=== PATIENT | female | born 1960 | race Caucasian/White ===

== ENCOUNTER 2019-11-18 10:46 | Outpatient (CLI) | payer OTHER, SELFPAY ==
--- NOTE | ~2019-11-18 | US_ITS ---
EXAMINATION: US pelvic complete w TV DATE: 11/18/2019 11:44 INDICATION: Postmenopausal bleeding for one year Comparison:09/22/2017 TECHNIQUE: Multiple transabdominal and endovaginal sonographic images of the pelvis performed. FINDINGS: The uterus measures 12.8 x 9.3 x 11 cm. There are multiple ill-defined myometrial masses so me with calcifications, largest measuring 3.7 x 3.3 x 3.2 cm, consistent with fibroids. The endometri al complex measures 15.5 mm. The ovaries are not visualized. There is no free fluid in the pelvis. There are no abnormal masses seen on either side. IMPRESSION: 1. Thickened endomtrial complex. The differential diagnosis includes endometrial hyperplasia, polyp a nd carcinoma. Biopsy is recommended. 2: Enlarged fibroid uterus. Reviewed, dictated and finalized at location A. IMPRESSION: 1. Thickened endomtrial complex. The differential diagnosis includes endometria l hyperplasia, polyp and carcinoma. Biopsy is recommended. 2: Enlarged fibroid uterus.
== END 2019-11-18 10:47 | disposition home or self-care (01) ==
PROVIDERS: PCP Internal Medicine; Visit Provider Obstetrics & Gynecology Gynecology
DX: N95.0 Postmenopausal bleeding (principal); D25.9 Leiomyoma of uterus, unspecified
CPT/HCPCS: 76830; 76856

== ENCOUNTER 2019-11-29 09:44 | Outpatient (CLI) | payer OTHER, SELFPAY ==
--- NOTE | ~2019-11-29 | MM_ITS ---
EXAMINATION: MM screening leonardo BI w rubi HISTORY: Screening mammogram TECHNIQUE: Craniocaudal and mediolateral oblique 3-D tomosynthesis images were obtained and synthetic 2-D images were generated. CAD analysis was submitted and interpreted. COMPARISON: Comparison to multiple prior studies sequentially, with oldest reviewed study dated 08/30. BREAST PARENCHYMAL COMPOSITION: The breasts are heterogeneously dense, which may obscure small masses . FINDINGS: There are developing asymmetries in the left breast best seen on CC view, obscured by dense fibroglandular tissue. The right breast is stable without evidence for malignancy. IMPRESSION: 1. Developing left breast asymmetries. 2. Additional mammographic views and possible breast ultrasound are recommended. BI-RADS Category 0: Incomplete: Needs additional imaging evaluation. Reviewed, dictated and finalized at location A. IMPRESSION: 1. Developing left breast asymmetries. 2. Additional mammographic views and possible breast ultrasound are recommended . BI-RADS Category 0: Incomplete: Needs additional imaging evaluation.
== END 2019-11-29 09:45 | disposition home or self-care (01) ==
LOC: ANHIMG 09:45
PROVIDERS: PCP Internal Medicine; Visit Provider Obstetrics & Gynecology Gynecology
DX: Z12.31 Encounter for screening mammogram for malignant neoplasm of breast (principal); R92.8 Other abnormal and inconclusive findings on diagnostic imaging of breast
CPT/HCPCS: 77063; 77067

== ENCOUNTER 2019-12-03 01:08 | Outpatient (CLI) | payer OTHER, SELFPAY ==
[2019-12-04 18:47] LABS: SARS-CoV-2 RNA PCR Negative
== END 2019-12-03 01:09 | disposition home or self-care (01) ==
LOC: ANHCOVIDDT 01:08
PROVIDERS: PCP Internal Medicine; Visit Provider Obstetrics & Gynecology Gynecology
DX: Z01.812 Encounter for preprocedural laboratory examination (principal); Z11.59 Encounter for screening for other viral diseases
CPT/HCPCS: 87635; 93005; C9803; U0003

== ENCOUNTER 2019-12-03 10:08 | Outpatient (CLI) | payer OTHER, SELFPAY ==
--- NOTE | 2019-12-03 10:11 | ECG_ITS ---
Measurements Intervals [place] Rate: 73 P: 55 NH: 160 QRS: 9 QRSD: 82 T: 14 QT: 357 QTc: 394 Interpretive Statements SINUS RHYTHM BORDERLINE ST-T WAVE ABNORMALITY- ANTEROLAT/INF LEADS BASELINE ARTIFACT- I, II, III, AVR, AVL,A VF BORDERLINE ECG Electronically Signed On 12-03-2019 10:38:52 CDT by Mark Velasquez D.O.
== END 2019-12-03 10:09 | disposition home or self-care (01) ==
LOC: ANHSURGERY 10:11
PROVIDERS: PCP Internal Medicine; Visit Provider Obstetrics & Gynecology Gynecology
DX: I10 Essential (primary) hypertension (principal); R94.31 Abnormal electrocardiogram [ECG] [EKG]
CPT/HCPCS: 87635; 93005; C9803; U0003

== ENCOUNTER 2019-12-06 01:58 | Day surgery (SDC) | payer OTHER, SELFPAY ==
[2019-11-29 13:47] VITALS: BMI 29.1
--- NOTE | 2019-12-06 07:59 | PM.HPGS ---
History of Present Illness History of Present Illness Consent: Risks, benefits, and alternatives have been discussed and questions answered. Patient agrees to proceed with procedure. Chief complaint: thick endometrium Narrative: Yue Horner is a 59 year old female with persistent spotting 3-5 days per month. U/s showed thickened endometrium at 15 mm. She did have a normal hysteroscopy with D&C 01/28. Recommended to repeat procedure with abnormal u/s and continued spotting. Risks of infection, bleeding, perforation, and possible pathology discussed. [facility] Past Medical History Medical History (Updated 12/06/19 @ 08:07 by Oralia Frank MD) Anxiety Hypertension Status post hysteroscopy x 2 2018 polyp vs hyperplasia without atypia pathology unclear-repeat endometrial biopsy normal 3 months later after increased progesterone 2019 negative Surgical History Surgical History (Updated 12/06/19 @ 08:04 by Oralia Frank MD) H/O breast biopsy H/O detached retina repair Hx of cataract surgery Family History Family History (Updated 07/22/19 @ 10:56 by Lyssa Fischer) Sibling Family history of multiple sclerosis CHF (congestive heart failure) Mother Family history of pancreatic cancer Grandparent CHF (congestive heart failure) Social History Social History Smoking status: Former smoker Smoking end date: 05/12/00 Alcohol intake: current Drinks per week: 14 Substance use: current Substance use type: marijuana Living arrangements: with family Gender identity (if verbalized by the patient): Female Spiritual care concerns: No Meds Home Medications and Allergies Home Medications Medication Instructions Recorded Confirmed Type cholecalciferol (vitamin D3) 1,250 50,000 unit PO WEEKLY 07/22/19 11/29/19 History mcg (50,000 unit) tablet estradiol 1 mg tablet 1 mg PO DAILY 07/22/19 11/29/19 History paroxetine HCl 20 mg tablet 20 mg PO DAILY 07/22/19 11/29/19 History progesterone micronized 100 mg 100 mg PO QAM 07/22/19 11/29/19 History capsule progesterone micronized 200 mg 200 mg PO ONCE 07/22/19 11/29/19 History capsule lisinopril 10 mg tablet 10 mg PO DAILY #90 tablet 08/19/19 11/29/19 Rx ibuprofen 600 mg tablet 600 mg PO BID PRN #30 tablet 09/10/19 11/29/19 Rx metoprolol succinate 50 mg 50 mg PO DAILY #90 tablet 09/20/19 11/29/19 Rx tablet,extended release 24 hr cyanocobalamin-salcaprozat sod 1 tablet PO DAILY 11/29/19 11/29/19 History [Eligen B12] ymqotqqn-egx-fvsi-FA-lutein 1 tablet PO DAILY 11/29/19 11/29/19 History [Centrum Silver Women] omega 3-paa-ous-fish oil [Tennga-3] 1 cap PO DAILY 11/29/19 11/29/19 History vitamin E 400 unit PO DAILY 11/29/19 11/29/19 History Allergies Allergy/AdvReac Type Severity Reaction Status Date / Time No Known Allergies Allergy Unverified 12/06/19 08:03 Exam Const: General: healthy appearing and alert Orientation/consciousness: patient oriented x3 Resp: Effort & Inspection: normal respiratory effort Auscultation: clear to auscultation bilaterally Cardio: Rate: regular rate Rhythm: regular rhythm GI: GI Palp: Yes Soft to palpation, No Tenderness to palpation present (GI) and No Palpable mass present : External Female Exam: normal external appearance Speculum Exam - Vagina: normal appearance of the vagina and vaginal bleeding Speculum Exam - Cervix: normal appearance of the cervix Bimanual exam- vagina & uterus: uterine size normal and consistency normal Bimanual Exam- Adnexa, other: normal adnexae and No adnexal tenderness Neuro: General: patient oriented x3 Assessment and Plan Assessment and plan (1) Post-menopausal bleeding: Code(s): N95.0 - Postmenopausal bleeding Status: Acute Assessment and Plan: with thickened endometrium plan hysteroscopy with D&C
[2019-12-06 08:08] VITALS: BP 149/84; PULSE 76; RESP 18; TEMP 36.7; O2SAT 98
[2019-12-06] MEDS: ACETAMINOPHEN 500 MG TABLET 1000 MG PO (08:18)
[2019-12-06] MEDS: LACTATED RINGERS 1,000 ML 30 ML IV CONT (08:18)
--- NOTE | 2019-12-06 09:27 | WPDANESEPPF ---
Anes - Initial Pre Proc Eval Procedure: Operation Date: 12/06/19 09:45 Proposed Procedures p Hysteroscopy Dilation and Curettage - Oralia Frank MD Date/Time: 12/06/19 09:27 Surgeon: Oralia Frank MD Pre Op Diagnosis: thick endometrium Patient Data Age: 59 Gender: F Height: 5 ft 5 in Weight: 84.5 kg Last Vital Signs Temp 98.0 F 12/06/19 08:08 Pulse 76 12/06/19 08:08 Resp 18 12/06/19 08:08 BP 149/84 H 12/06/19 08:08 Pulse Ox 98 12/06/19 08:08 Allergies Allergy/AdvReac Type Severity Reaction Status Date / Time No Known Allergies Allergy Unverified 12/06/19 08:03 Home Medications Medication Instructions Recorded Confirmed Type cholecalciferol (vitamin D3) 1,250 50,000 unit PO WEEKLY 07/22/19 12/06/19 History mcg (50,000 unit) tablet estradiol 1 mg tablet 1 mg PO DAILY 07/22/19 12/06/19 History paroxetine HCl 20 mg tablet 20 mg PO DAILY 07/22/19 12/06/19 History progesterone micronized 100 mg 100 mg PO QAM 07/22/19 12/06/19 History capsule progesterone micronized 200 mg 200 mg PO ONCE 07/22/19 12/06/19 History capsule lisinopril 10 mg tablet 10 mg PO DAILY #90 tablet 08/19/19 12/06/19 Rx ibuprofen 600 mg tablet 600 mg PO BID PRN #30 tablet 09/10/19 12/06/19 Rx metoprolol succinate 50 mg 50 mg PO DAILY #90 tablet 09/20/19 12/06/19 Rx tablet,extended release 24 hr cyanocobalamin-salcaprozat sod 1 tablet PO DAILY 11/29/19 12/06/19 History [Eligen B12] jpmwgskv-uet-blsc-FA-lutein 1 tablet PO DAILY 11/29/19 12/06/19 History [Centrum Silver Women] omega 4-egb-pgl-fish oil [Tolono-3] 1 cap PO DAILY 11/29/19 12/06/19 History vitamin E 400 unit PO DAILY 11/29/19 12/06/19 History Patient hx anesthesia problems: none Family hx anesthesia problems: none PMFSH Past Medical History Medical History (Updated 12/06/19 @ 08:07 by Oralia Frank MD) Anxiety Hypertension Status post hysteroscopy x 2 2018 polyp vs hyperplasia without atypia pathology unclear-repeat endometrial biopsy normal 3 months later after increased progesterone 2019 negative Surgical History Surgical History (Updated 12/06/19 @ 08:04 by Oralia Frank MD) H/O breast biopsy H/O detached retina repair Hx of cataract surgery Family History Family History (Updated 07/22/19 @ 10:56 by Lyssa Fischer) Sibling Family history of multiple sclerosis CHF (congestive heart failure) Mother Family history of pancreatic cancer Grandparent CHF (congestive heart failure) Social History Social History Smoking status: Former smoker Smoking end date: 05/12/00 Alcohol intake: current Drinks per week: 14 Substance use: current Substance use type: marijuana Living arrangements: with family Gender identity (if verbalized by the patient): Female Spiritual care concerns: No Anes - Eval Final PreProcedure Day of Procedure 12/06/19 09:27 Patient weight: overweight Heart: regular rate and rhythm Lungs: clear to auscultation Airway: Mallampati scale class III Neurological: alert and oriented Last oral intake: >/= 8 hours ASA classification: II Emergent: no Anesthetic plan: proceed Anesthesia type and monitoring: general GIVS and standard monitoring Informed Consent: The patient's anesthetic plan and its attendant risks and benefits were discussed with the patient/family/POA. Questions were solicited and answers provided to the satisfaction of the patient/family/POA.
[2019-12-06] MEDS: KETOROLAC 30 MG/ML VIAL (*BKC) IV PUSH (10:02)
--- NOTE | 2019-12-06 10:11 | SUR.OPER ---
EBL:5cc
--- NOTE | 2019-12-06 10:18 | PM.OP ---
Procedure Note - Brief Procedure Note - Brief Date of procedure: 12/06/19 Pre-op diagnosis: thick endometrium postmenopausal bleeding Post-op diagnosis: same Procedure performed: D&C hysteroscopy with myosure Anesthesia: MAC and local Surgeon: Oralia Frank MD Estimated blood loss (mL): 5 Drains: No Packing: No Pathology: yes (endometrial and endocervical shavings; endometrial curettings) Complications: No immediate complications Condition: stable Disposition: PACU Findings: uterus 10 cm; anterior cervix at the junction of endometrium appears thickened; remainder of cavity appears atrophic
[2019-12-06 10:22] VITALS: BP 151/92; PULSE 62; RESP 16; O2SAT 100
[2019-12-06 10:55] VITALS: BP 148/90; PULSE 55; RESP 16
--- NOTE | 2019-12-06 14:38 | OP_ITS ---
DATE OF PROCEDURE: 12/06/2019 PREOPERATIVE DIAGNOSES: 1. Postmenopausal bleeding. 2. Thickened endometrium. POSTOPERATIVE DIAGNOSES: 1. Postmenopausal bleeding. 2. Thickened endometrium. PROCEDURE PERFORMED: D and C, hysteroscopy with MyoSure resection. ANESTHESIA: MAC and local. FINDINGS: The uterus sounds to 10 cm. There was a thickened area on the anterior cervix near the endometrial junction. The remainder of the cavity appears atrophic. DESCRIPTION OF PROCEDURE: The patient was taken to the operating room, placed under anesthesia, prepped and draped in the usual sterile fashion. Bivalved speculum was placed in the vagina. Cervix was grasped on the anterior lip with a tenaculum and injected with 1% lidocaine. The uterus was sounded to 10 cm. The cervix was serially dilated with Hegar's. Diagnostic hysteroscope was placed with the above-stated findings. MyoSure device was opened and placed. The thickened area at the cervical junction was removed with the MyoSure under direct visualization. The instruments were removed. The medium sharp curette was used to curette the endometrium until a good uterine cry was noted in all areas. Minimal material was obtained during this process. All instruments were removed. The patient was taken to Recovery in stable condition. Hamida I MT: Jennifer
== END 2019-12-06 11:05 | disposition home or self-care (01) ==
PROVIDERS: PCP Internal Medicine; Visit Provider Obstetrics & Gynecology Gynecology
PROC: 0U5B8ZZ Destruction of Endometrium, Via Natural or Artificial Opening Endoscopic (ICD-10-PCS; CPT 58563; principal; 2019-12-06 09:45)
DX: N95.0 Postmenopausal bleeding (principal); D25.0 Submucous leiomyoma of uterus; I10 Essential (primary) hypertension; F41.9 Anxiety disorder, unspecified; Z87.891 Personal history of nicotine dependence; F12.90 Cannabis use, unspecified, uncomplicated
CPT/HCPCS: 58561; 88305; A9270; J1100; J1885; J2250; J2704; J3010; J7030; J7120

== ENCOUNTER 2019-12-20 11:08 | Outpatient (CLI) | payer OTHER, SELFPAY ==
--- NOTE | ~2019-12-20 | MMUS_ITS ---
EXAMINATION: MM diagnostic mammo unilat LT, US breast LT complete HISTORY: Follow-up left breast asymmetry TECHNIQUE: Additional 3-D tomosynthesis images of the left breast were performed and synthetic 2-D im ages were generated. CAD analysis was submitted and interpreted. High resolution left breast ultrasou nd was performed. COMPARISON: Comparison to multiple prior studies sequentially, with oldest reviewed study dated 08/30. BREAST PARENCHYMAL COMPOSITION: The breasts are heterogenously dense, which may obscure small masses. FINDINGS: MAMMOGRAPHIC FINDINGS: There are no suspicious masses, calcifications or architectural distortion in the left breast to sugg est malignancy. ULTRASOUND: Left breast ultrasound: There is an 8 mm cyst at 12:00 near the nipple. No suspicious masses to sugge st malignancy. IMPRESSION: 1. No mammographic or sonographic evidence for malignancy in the left breast. 2. Routine yearly screening mammogram and regular clinical breast examination are recommended. BI-RADS Category 2: Benign finding(s). Reviewed, dictated and finalized at location A. IMPRESSION: 1. No mammographic or sonographic evidence for malignancy in the left breast. 2. Routine yearly screening mammogram and regular clinical breast examination a re recommended. BI-RADS Category 2: Benign finding(s).
== END 2019-12-20 11:09 | disposition home or self-care (01) ==
LOC: ANHIMG 11:10
PROVIDERS: PCP Internal Medicine; Visit Provider Clinical Nurse Specialist
DX: R92.8 Other abnormal and inconclusive findings on diagnostic imaging of breast (principal)
CPT/HCPCS: 76641; 77065

== ENCOUNTER → 2020-06-17 06:47 | Outpatient (CLI) | payer OTHER, SELFPAY ==
[2020-06-18 00:19] LABS: SARS-CoV-2 RNA PCR Negative
== END ==
PROVIDERS: PCP Internal Medicine; Visit Provider Nurse Practitioner
DX: Z01.818 Encounter for other preprocedural examination (principal); Z20.822 Contact with and (suspected) exposure to COVID-19
CPT/HCPCS: C9803; U0003; U0005

== ENCOUNTER 2020-11-30 09:43 | Outpatient (CLI) | payer OTHER, SELFPAY ==
--- NOTE | ~2020-11-30 | MM_ITS ---
EXAMINATION: MM screening leonardo BI w rubi HISTORY: Screening TECHNIQUE: Craniocaudal and mediolateral oblique 3-D tomosynthesis images were obtained and synthetic 2-D images were generated. CAD analysis was submitted and interpreted. COMPARISON: Comparison to multiple prior studies sequentially, with oldest reviewed study dated 08/30. BREAST PARENCHYMAL COMPOSITION: The breasts are heterogeneously dense, which may obscure small masses . FINDINGS: The left breast is stable without evidence for malignancy. There is a developing cluster of pleomorphic calcifications in the upper outer quadrant of the right breast. IMPRESSION: 1. Developing clustered right breast calcifications. 2. Additional mammographic views and possible breast ultrasound are recommended. BI-RADS Category 0: Incomplete: Needs additional imaging evaluation. Reviewed, dictated and finalized at location A. IMPRESSION: 1. Developing clustered right breast calcifications. 2. Additional mammographic views and possible breast ultrasound are recommended . BI-RADS Category 0: Incomplete: Needs additional imaging evaluation.
== END 2020-11-30 09:44 | disposition home or self-care (01) ==
LOC: ANHIMG 09:45
PROVIDERS: PCP Internal Medicine; Visit Provider Obstetrics & Gynecology Gynecology
DX: Z12.31 Encounter for screening mammogram for malignant neoplasm of breast (principal); R92.8 Other abnormal and inconclusive findings on diagnostic imaging of breast
CPT/HCPCS: 77063; 77067

== ENCOUNTER 2020-12-26 13:46 | Outpatient (CLI) | payer OTHER, SELFPAY ==
--- NOTE | ~2020-12-26 | MM_ITS ---
EXAMINATION: MM diagnostic leonardo RT w rubi HISTORY: Indeterminate right breast calcifications on screening mammogram TECHNIQUE: Magnification views of the right breast were performed. CAD analysis was submitted and int erpreted. COMPARISON: 11/30/2020, 11/29/2019, 10/13/2018, 09/23/2017 FINDINGS: There are grouped coarse heterogeneous calcifications in the posterior third of the upper o uter quadrant breast at the 10:00 location 10 cm from the nipple. No associated mass is identified. IMPRESSION: 1. Suspicious right breast calcifications. 2. Stereotactic biopsy is recommended. BI-RADS category 4, suspicious findings. Reviewed, dictated and finalized at location A.
== END 2020-12-26 13:47 | disposition home or self-care (01) ==
LOC: ANHIMG 13:47
PROVIDERS: PCP Internal Medicine; Visit Provider Obstetrics & Gynecology Gynecology
DX: R92.8 Other abnormal and inconclusive findings on diagnostic imaging of breast (principal)
CPT/HCPCS: 77061; 77065; G0279

== ENCOUNTER 2021-01-09 12:28 | Outpatient (CLI) | payer OTHER, SELFPAY ==
--- NOTE | ~2021-01-09 | MM_ITS ---
MM stereotactic bx RT, MM diagnostic mammo unilat RT, MM stereotactic specimen RT EXAMINATION: JHONY juan reotactic bx RT, MM diagnostic mammo unilat RT, MM stereotactic specimen RT DATE: Dax Bates M.D. INDICATION: Abnormal calcifications in the right breast. Stereotactic core biopsy is requested evalu ate for malignancy.] TECHNIQUE AND FINDINGS: The risks and potential benefits of the procedure were discussed with the patient and written informe d consent was obtained. The patient was placed in the prone position clustered at the table with the right breast in mediolateral compression, and the area of interest was localized and targeted utiliz ing digital imaging with stereotaxis. After sterile preparation of the skin, 1% lidocaine was utilized for local anesthesia at the skin pun cture site and 1% lidocaine with epinephrine was utilized for deeper local anesthesia/is about the bi opsy site. A 9G Grid Mobile vacuum assisted biopsy needle was advanced to the level of the calcification o f interest from a lateral approach utilizing stereotactic guidance and a total of 6 tissue core biops ies were obtained. A specimen radiograph demonstrates that the calcifications of interest are included within the tissue cores. A tissue marker clip was then placed at the biopsy site. The needle was removed and hemosta sis was achieved. The patient tolerated the procedure well and there is no evidence of significant i mmediate complication. The patient was given verbal as well as written postprocedural instructions p rior to discharge from the department. Tissue cores were submitted to surgical pathology for histolo gic analysis. A 2-view right unilateral digital mammogram was obtained post procedure and this demonstrates that th e tissue marker clip is in expected position.] IMPRESSION: 1. Successful stereotactic biopsy of calcifications in the upper quadrant of the right breast, follo wed by tissue marker clip placement. Please refer to pathology report for histologic analysis. Reviewed, dictated and finalized at location A. IMPRESSION: 1. Successful stereotactic biopsy of calcifications in the upper quadrant of t he right breast, followed by tissue marker clip placement. Please refer to pat hology report for histologic analysis. IMPRESSION: 1. Successful stereotactic biopsy of calcifications in the upper quadrant of t he right breast, followed by tissue marker clip placement. Please refer to pat hology report for histologic analysis.
== END 2021-01-09 12:29 | disposition home or self-care (01) ==
PROVIDERS: PCP Internal Medicine; Visit Provider Surgery
DX: R92.8 Other abnormal and inconclusive findings on diagnostic imaging of breast (principal)
CPT/HCPCS: 19081; 77065; 88305; A4648

== ENCOUNTER 2021-04-12 09:45 | Outpatient (CLI) | payer OTHER, SELFPAY ==
--- NOTE | 2021-04-12 11:00 | NEURO_ITS ---
Impression: # Complains of numbness of feet. # Normal nerve conduction study. # Normal needle/EMG exam. # Clinical correlation recommended; Problem could be related to small fiber neuropathy or higher involvement. Nerve Conduction Studies Anti Sensory Summary Table Stim Site NR Peak (ms) P-T Amp (?V) Site1 Site2 Delta-P (ms) Dist (cm) Shankar (m/s) Left Sup Fibular Anti Sensory (Ant Lat Mall) 14 cm 3.7 34.1 14 cm Ant Lat Mall 3.7 16.0 43 Right Sup Fibular Anti Sensory (Ant Lat Mall) 14 cm 4.0 7.5 14 cm Ant Lat Mall 4.0 16.0 40 Left Sural Anti Sensory (Lat Mall) Calf 3.9 8.7 Calf Lat Mall 3.9 16.0 41 Right Sural Anti Sensory (Lat Mall) Calf 4.5 7.2 Calf Lat Mall 4.5 16.0 36 Motor Summary Table Stim Site NR Onset (ms) O-P Amp (mV) Site1 Site2 Delta-0 (ms) Dist (cm) Shankar (m/s) Left Peroneal Motor (Vastus Med) Ankle 5.1 1.1 Popit Ankle 7.7 39.0 51 Popit 12.8 0.7 Right Peroneal Motor (Vastus Med) Ankle 5.4 2.5 Popit Ankle 7.3 35.0 48 Popit 12.7 2.2 Left Tibial Motor (Abd Jones Brev) Ankle 5.2 1.6 Knee Ankle 8.3 41.0 49 Knee 13.5 1.5 Right Tibial Motor (Abd Jones Brev) Ankle 5.5 7.1 Knee Ankle 9.9 40.0 40 Knee 15.4 6.7 F Wave Studies NR F-Lat (ms) L-R F-Lat (ms) Left Peroneal (Mrkrs) (EDB) 52.19 0.35 Right Peroneal (Mrkrs) (EDB) 52.54 0.35 Left Tibial (Mrkrs) (Abd Hallucis) 53.35 0.09 Right Tibial (Mrkrs) (Abd Hallucis) 53.26 0.09 EMG Side Muscle Nerve Root Ins Act Fibs Amp Dur Recrt Comment Right AntTibialis Dp Br Fibular L4-5 Nml Nml Nml Nml Nml Right Gastroc Tibial S1-2 Nml Nml Nml Nml Nml Right Fibularis Long Sup Br Fibular L5-S1 Nml Nml Nml Nml Nml Right Flex Dig Long Tibial L5-S2 Nml Nml Nml Nml Nml Right Ext Dig Brev Dp Br Fibular L5, S1 Nml Nml Nml Nml Nml Left AntTibialis Dp Br Fibular L4-5 Nml Nml Nml Nml Nml Left Gastroc Tibial S1-2 Nml Nml Nml Nml Nml Left Fibularis Long Sup Br Fibular L5-S1 Nml Nml Nml Nml Nml Left Flex Dig Long Tibial L5-S2 Nml Nml Nml Nml Nml Left Ext Dig Brev Dp Br Fibular L5, S1 Nml Nml Nml Nml Nml MTDD
== END 2021-04-12 09:46 | disposition home or self-care (01) ==
LOC: ANHNEURO 09:47
PROVIDERS: PCP Internal Medicine; Visit Provider Internal Medicine
DX: R20.2 Paresthesia of skin (principal)
CPT/HCPCS: 95886; 95910

== ENCOUNTER 2021-07-20 11:17 | Outpatient (CLI) | payer BC, SELFPAY ==
--- NOTE | ~2021-07-20 | MM_ITS ---
EXAMINATION: MM diagnostic leonardo RT w rubi HISTORY: Recent benign biopsy of the right breast. TECHNIQUE: Additional 3-D tomosynthesis images of the right breast were performed and synthetic 2-D i mages were generated. CAD analysis was submitted and interpreted. COMPARISON: Comparison to multiple prior studies sequentially, with oldest reviewed study dated 11/30. BREAST PARENCHYMAL COMPOSITION: The breasts are heterogenously dense, which may obscure small masses. FINDINGS: Stable cluster of calcifications upper outer quadrant of the right breast with adjacent tis blaine marker. No new masses, calcifications or architectural distortion in the right breast to suggest malignancy. IMPRESSION: 1. No evidence for malignancy in the right breast. 2. Routine yearly screening mammogram and regular clinical breast examination are recommended. BI-RADS Category 2: Benign finding(s). Reviewed, dictated and finalized at location A. 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 No evidence for malignancy in the right breast. 2. Routine yearly screening mammogram and regular clinical breast examination a re recommended. BI-RADS Category 2: Benign finding(s).
== END 2021-07-20 11:18 | disposition home or self-care (01) ==
LOC: ANHIMG 11:22
PROVIDERS: PCP Internal Medicine; Visit Provider Surgery
DX: R92.8 Other abnormal and inconclusive findings on diagnostic imaging of breast (principal); Z98.890 Other specified postprocedural states
CPT/HCPCS: 77061; 77065; G0279

== ENCOUNTER 2022-01-01 10:19 | Outpatient (CLI) | payer BC, SELFPAY ==
--- NOTE | ~2022-01-01 | MM_ITS ---
EXAMINATION: MM screening [facility] BI w rubi HISTORY: Screening TECHNIQUE: Craniocaudal and mediolateral oblique 3-D tomosynthesis images were obtained and synthetic 2-D images were generated. CAD analysis was submitted and interpreted. COMPARISON: Comparison to multiple prior studies sequentially, with oldest reviewed study dated 11/28. BREAST PARENCHYMAL COMPOSITION: The breasts are extremely dense, which lowers the sensitivity of mamm ography FINDINGS: Stable right breast calcifications clustered in the upper outer quadrant, previously biopsy -proven benign. There is no evidence of suspicious mass, calcification, or architectural distortion t o suggest malignancy in either breast. There has been no suspicious interval change. IMPRESSION: 1. No mammographic evidence of malignancy. 2. Recommend routine screening mammography in one year. BI-RADS Category 2: Benign finding(s). Reviewed, dictated and finalized at location A.
== END 2022-01-01 10:20 | disposition home or self-care (01) ==
PROVIDERS: PCP Internal Medicine; Visit Provider Obstetrics & Gynecology Gynecology
DX: Z12.31 Encounter for screening mammogram for malignant neoplasm of breast (principal)
CPT/HCPCS: 77063; 77067

== ENCOUNTER 2022-02-11 11:52 | Outpatient (CLI) | payer BC, SELFPAY ==
--- NOTE | ~2022-02-11 | MMUS_ITS ---
EXAMINATION: MM diagnostic leonardo RT w rubi, US breast RT limited HISTORY: Palpable lump of the upper inner quadrant of the right breast. TECHNIQUE: Craniocaudal, mediolateral, and mediolateral oblique 3-D tomosynthesis images of the right breast were performed and synthetic 2-D images were generated. CAD analysis was submitted and interp reted. High resolution limited right breast ultrasound was performed. COMPARISON: 01/01/2022, 07/20/2021, 01/09/2021, 11/30/2020, 11/29/2019 BREAST PARENCHYMAL COMPOSITION: The breasts are heterogeneously dense, which may obscure small masses . FINDINGS: MAMMOGRAPHIC FINDINGS: There is a stable 1.9 cm mass with calcification and biopsy change in the right breast at the 3:00 lo cation in the middle third of the breast near the area of palpable concern. There has been no suspici ous interval change. ULTRASOUND: There is a 2.0 x 0.7 cm oval, circumscribed, parallel, hypoechoic mass with internal calcification, a biopsy marker, no posterior features, and no internal vascularity corresponding to the palpable abno rmality of concern. IMPRESSION: 1. No mammographic or sonographic evidence of malignancy. 2. Recommend routine screening mammography in one year. BI-RADS Category 2: Benign finding(s). Reviewed, dictated and finalized at location A. IMPRESSION: 1. No mammographic or sonographic evidence of malignancy. 2. Recommend routine screening mammography in one year. BI-RADS Category 2: Benign finding(s).
== END 2022-02-11 11:53 | disposition home or self-care (01) ==
PROVIDERS: PCP Internal Medicine; Visit Provider Obstetrics & Gynecology Gynecology
DX: N63.12 Unspecified lump in the right breast, upper inner quadrant (principal)
CPT/HCPCS: 76642; 77061; 77065; G0279

== ENCOUNTER 2023-10-07 14:24 | Outpatient (CLI) | payer BC, SELFPAY ==
--- NOTE | ~2023-10-07 | DEXA_ITS ---
Bone Density Report Name: MARIA ISABEL WORKMAN Age: 63 Sex: Female Ethnicity: White Date of : 1960 Indication: postmenopausal; screening for osteoporosis; Referring Provider: JAMES VEGA Study: Bone densitometry was performed. Exam Date: October 07, 2023 Accession number: [id number] Bone Density: Region BMD T-score Z-score Classification AP Spine(L1-L4) 1.285 2.2 3.9 Normal Femoral Neck (Left) 0.879 0.3 1.8 Normal Total Hip (Left) 1.101 1.3 2.5 Normal Femoral Neck (Right) 0.927 0.7 2.2 Normal Total Hip (Right) 1.140 1.6 2.8 Normal Total Hip Mean 1.121 1.5 2.7 Normal World Health Organization criteria for BMD impression classify patients as: Normal (T-score at or above -1.0), Osteopenia (T-score between -1.0 and -2.5), or Osteoporosis (T-score at or below -2.5). 10-year Fracture Risk: FRAX not reported because: All T-scores for Spine Total, Hip Total, Femoral Neck at or above -1.0 Clinical Information Provided by Patient: Has used the following medications: Vitamin D, Calcium Patient maximum height was 65.5 Menopause Age: 62 Drinks caffeinated beverages Onset of menses at age 12 Number of children 1 Impression: The patient has normal bone mass. Discussion: BONE DENSITY IS ABOVE THE MINIMUM DESIRABLE LEVEL AT ALL SKELETAL SITES TESTED. This patient?s bone mineral density is above the minimum desirable level (T-score -1.0 or better) at all sites measured. The patient should follow a healthful lifestyle (good nutrition with adequate calcium and vitamin D, and appropriate weight-bearing exercise). Follow-Up: Consider repeating this study in 5 years or sooner if there is some new clinical indication. Reported by: MADONNA on 10/07/2023 3:03:00 PM. Reviewed, dictated and finalized at location A.
--- NOTE | ~2023-10-07 | MM_ITS ---
EXAMINATION: MM screening leonardo BI w rubi HISTORY: Screening TECHNIQUE: Craniocaudal and mediolateral oblique 3-D tomosynthesis images were obtained and synthetic 2-D images were generated. CAD analysis was submitted and interpreted. COMPARISON: Comparison to multiple prior studies sequentially, with oldest reviewed study dated 11/30. BREAST PARENCHYMAL COMPOSITION: Dense: The breasts are heterogeneously dense, which may obscure small masses FINDINGS: There is no evidence of suspicious mass, calcification, or architectural distortion to sugg est malignancy in either breast. There has been no suspicious interval change. IMPRESSION: 1. No mammographic evidence of malignancy. 2. Recommend routine screening mammography in one year. BI-RADS Category 1: Negative Reviewed, dictated and finalized at location B.
== END 2023-10-07 14:25 | disposition home or self-care (01) ==
PROVIDERS: PCP Internal Medicine; Visit Provider Obstetrics & Gynecology Gynecology
DX: Z12.31 Encounter for screening mammogram for malignant neoplasm of breast (principal); Z78.0 Asymptomatic menopausal state; Z13.820 Encounter for screening for osteoporosis
CPT/HCPCS: 77063; 77067; 77080

== ENCOUNTER 2024-04-26 10:37 | Outpatient (CLI) | payer MEDICARE, SELFPAY ==
[2024-04-26 11:40] LABS: Alanine Aminotransferase 18 U/L (6-35); Aspartate Amino Transferase 22 U/L (14-36)
== END 2024-04-26 10:38 | disposition home or self-care (01) ==
PROVIDERS: PCP Internal Medicine; Visit Provider Podiatrist Foot & Ankle Surgery
DX: B35.1 Tinea unguium (principal)
CPT/HCPCS: 36415; 84450; 84460

== ENCOUNTER 2024-07-13 08:53 | Outpatient (CLI) | payer MEDICARE, SELFPAY | END 2024-07-13 08:54 | disposition home or self-care (01) | LOC: ANHIMG 08:56 | PROVIDERS: PCP Internal Medicine; Visit Provider Anesthesiology Pain Medicine | DX: G62.9 Polyneuropathy, unspecified (principal); G89.29 Other chronic pain; M79.671 Pain in right foot; M79.672 Pain in left foot; M47.896 Other spondylosis, lumbar region | CPT/HCPCS: 72148 ==

== ENCOUNTER 2024-07-28 11:21 | Outpatient (CLI) | payer MEDICARE, SELFPAY ==
[2024-07-28 13:19] LABS: Basophils Percent Auto 0.6 % (0.2-1.2); Eosinophils Percent Auto 0.6 % (0-4.4); Hematocrit 41.6 % (37.0-47.0); Hemoglobin 13.4 g/dL (12.0-15.0); Immature Granulocyte Absolute 0.02 K/mm3 (0.00-0.031); Immature Granulocyte Percent A 0.3 % (0-0.5); Lymphocytes Absolute Auto 2.09 K/mm3 (0.9-3.2); Lymphocytes Percent Auto 33.5 % (18.3-44.2); Mean Corpuscular HGB Conc 32.2 g/dl (32-36); Mean Corpuscular Volume 93.1 fl (80-100); Mean Platelet Volume 9.8 fl (7.4-10.4); Monocytes Absolute Auto 0.5 K/mm3 (0.1-0.6); Monocytes Percent Auto 7.4 % (2.6-8.5); Neutrophils Absolute Auto 3.6 K/mm3 (1.3-6.7); Neutrophils Percent Auto 57.6 % (45.5-73.1); Platelet Count Result 359 k/mm3 (150-375); Red Blood Count 4.47 M/mm3 (4.2-5.4); Red Cell Distribution Width 12.9 % (11.5-14.5); White Blood Count 6.2 K/mm3 (4.5-10.0)
--- OUTSIDE RECORDS SUMMARY | 2024-07-28 13:19 | XMS_ITS | Clinical Summary ---
Author Organization [facility] Address [address] [place] [address] Care Team Providers Care V Belt Skiver Name Role Phone Geo Villela DO Primary Care Provider [phone] Source Comments [facility],non-owned Affiliates and Associated Physician Practices is amultiple site organization consisting of ambulatory clinics and hospital sitesin [place], [place], [place] and [place]. This disclosure is being madepursuant to the Care Everywhere program and may not contain all information available regarding this patient. Last updated 18.[facility] Allergies No known active allergies Medications * Be aware that medications may not be up to date on this document. Alwaysverify current medications with the patient. Medication Sig Dispensed Refills Start Date End Date Status vitamin D, ergocalciferol, (DRISDOL) 80356 UNITS capsule Take 1 capsule by mouth every 7 days 03/29/2018 Active estradiol (ESTRACE) 1 MG tablet Take 1 tablet by mouth once daily 04/06/2018 Active ibuprofen (MOTRIN) 800 MG tablet Take 1 tablet by mouth as needed 04/06/2018 Active lisinopril (PRINIVIL;ZESTRIL) 5 MG tablet Take 1 tablet by mouth once daily 04/06/2018 Active metoprolol succinate XL 24hr (TOPROL XL) 50 MG tablet Take 1 tablet by mouth once daily 04/06/2018 Active PARoxetine (PAXIL) 20 MG tablet Take 1 tablet by mouth once daily 04/06/2018 Active progesterone micronized (PROMETRIUM) 200 MG capsule Take 1 capsule by mouth once daily 04/07/2018 Active progesterone micronized (PROMETRIUM) 100 MG capsule Take 1 capsule by mouth once daily 04/06/2018 Active vitamin E (VITAMIN E COMPLEX) 400 UNIT capsule Take 400 Units by mouth once daily Active MEGARED OMEGA-3 KRILL OIL 500 MG CAPS Take 1 capsule by mouth once daily 350 MG DAILY Active Multiple Vitamins-Minerals (CENTRUM SILVER) TABS Take 1 tablet by mouth daily with food Active calcium-vitamin D (CALTRATE PLUS D) 600-200 MG-UNIT tablet Take 1 tablet by mouth once daily Active Active Problems Problem Noted Date Diagnosed Date 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 Other rosacea 06/19/2018 Actinic keratosis 06/19/2018 Melanocytic nevi of trunk 06/19/2018 Seborrheic keratosis 06/19/2018 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 9 History of laser photocoagulation of retina 11/2018 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 Family History Medical History Relation Name Comments Cancer - Pancreatic Mother Cancer - Breast Sister Asthma Neg Hx CVA Neg Hx Cancer - Other Neg Hx Cancer - Skin, Melanoma Neg Hx Cancer - Skin, Non Melanoma Neg Hx Diabetes - Type 2 Neg Hx Eczema Neg Hx Glaucoma Neg Hx Hemophilia Neg Hx Hypertension Neg Hx Macular Degeneration Neg Hx Psoriasis Neg Hx Relation Name Status Comments Mother Sister Social History Tobacco Use Types Packs/Day Years Used Date Smoking Tobacco: Former Cigarettes Q uit: 2000 Smokeless Tobacco: Never Alcohol Use Standard Drinks/Week Comments Yes 0 (1 standard drink = 0.6 oz pur e alcohol) 3 glasses of wine a day Sex and Gender Information Value Date Recorded Sex Assigned at Not on file Gender Identity Not on file Sexual Orientation Not on file Plan of Treatment Health Maintenance Due Date Last Done Comments BONE DENSITY TESTING 1960 COLOGUARD (AGES 45-75) - COL ON CA SCREENING 1960 COLON MONITORING 1959 COLONOSCOPY - COLON CA SCREENING 1959 CT COLONOGRAPHY - COLON CA SCREENING 1960 Colorectal Cancer Screening 1960 FIT - COLON CA SCREENING 1959 FLEX SIG - COLON CA SCREENING 1959 LIPID TESTING 1960 MAMMOGRAM 1960 PAP SMEAR 1959 HIV SCREENING 1974 HEPATITIS C SCREENING 01/11/1977 DTAP/TDAP/TD VACCINES (1 - Tdap) 1978 PNEUMOCOCCAL VACCINE 50+ (1 of 1 - PCV) 2009 ZOSTER VACCINE (1 of 2) 2009 COVID-19 VACCINE (1 - 2023-2 5 season) 2024 INFLUENZA VACCINE (#1) 2024 DEPRESSION SCREENING 05/12/2024 Respiratory Syncytial Virus (RSV) Vaccine Pt: or over 60 yrs (1 - 1-dose 75+ series) 2034 HEPATITIS B VACCINE Aged Out No longe r eligible based on patient's age to complete this topic HIB VACCINE Aged Out No longer eligi ble based on patient's age to complete this topic HPV VACCINE Aged Out No longer eligi ble based on patient's age to complete this topic MENINGOCOCCAL (Group B) VACC INE SHARED DECISION-MAKING Aged Out No longer eligibl e based on patient's age to complete this topic MENINGOCOCCAL GROUPS A/C/Y/W VACCINE Aged Out No longer eligible b ased on patient's age to complete this topic Care Teams V Belt Skiver Relationship Specialty Start Date End Date Geo Villela DO PCP - General 04/17/18
--- OUTSIDE RECORDS SUMMARY | 2024-07-28 13:19 | XMS_ITS | Clinical Summary ---
Author Organization [facility] Address [address] [place] [address] Care Team Providers Care Cart Pusher Name Role Phone Geo Villela DO Primary Care Provider [phone] Allergies No known active allergies Medications Vitamin D, Ergocalciferol, 50 MCG (1999 UT) Cap Take 5,000 Units by mouth daily. 06/08/19 22 Active estradiol 1 MG tablet Take 1 mg by mouth daily. 07/09/19 21 Active ibuprofen 600 MG tablet Take 600 mg by mouth 2 (two) times daily as needed. 05/07/20 21 Active lisinopril 20 MG tablet Take 20 mg by mouth daily. 04/25/20 Active metoprolol succinate ER 50 MG 24 hr tablet Take 50 mg by mouth daily. 06/08/19 Active progesterone 200 MG capsule TAKE 2 CAPSULES BY MOUTH EVERY NIGHT AT BEDTIME 07/09/19 Active metroNIDAZOLE 0.75 % gel Apply topically 2 (two) times daily. apply to face 05/07/20 Active PARoxetine 20 MG tablet Take 20 mg by mouth daily. 05/09/20 Active simvastatin 10 MG tablet Take 10 mg by mouth daily. 04/25/20 Active vitamin E 400 UNIT capsule Take 400 Units by mouth daily. Active Calcium Carbonate+Vitamin D 600-200 MG-UNIT Tab Take 1 tablet by mouth daily. Active HYDROcodone-acetam inophen 5-325 MG tablet hydrocodone 5 mg-acetaminophen 325 mg tablet Active Krill Oil (OMEGA-3) 500 MG Cap Take 1 capsule by mouth daily. Active Multiple Vitamins-Minerals (CENTRUM SILVER) Tab Take 1 tablet by mouth daily. Active ondansetron 8 MG disintegrating tablet ondansetron 8 mg disintegrating tablet Active Active Problems Problem Noted Date Diagnosed Date Anxiety 06/25/2021 Hypertension 06/25/2021 Immunizations Name Administration Dates Next Due Influenza (Generic) 01/11/2021 Influenza Adult (Generic) 12/30/2019 Shingrix 08/09/2019,05/31/2019 Family History Medical History Relation Comments Cancer Mother Pancreatic CHF Neg Hx Multiple Sclerosis Neg Hx Relation Status Comments Mother Social History Tobacco Use Types Packs/Day Years Used Date Smoking Tobacco: Former Cigarettes Smokeless Tobacco: Never Tobacco Cessation:Counseling Given: No Alcohol Use Standard Drinks/Week Comments Yes 5 (1 standard drink = 0.6 oz pur e alcohol) Comments No Sex and Gender Information Value Date Recorded Sex Assigned at Not on file 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 Gender Identity Not on file Sexual Orientation Not on file Last Filed Vital Signs Vital Sign Reading Time Taken Comments Blood Pressure 144/82 10/09/2021 9:56 AM CDT Pulse 59 10/09/2021 9:56 AM CDT Temperature 36.9 C (98.5 F) 10/09/2021 9:56 AM CDT Respiratory Rate 16 10/09/2021 9:56 AM CDT Oxygen Saturation 96% 10/09/2021 9:56 AM CDT Inhaled Oxygen Concentration - - Weight 85.6 kg (188 lb 12.8 oz) 10/09/2021 9:56 AM CDT Height 165.1 cm (5' 5 ) 10/09/2021 9:56 AM CDT Body Mass Index 31.42 10/09/2021 9:56 AM CDT Plan of Treatment Health Maintenance Due Date Last Done Comments Colorectal Cancer Screening Colonoscopy (10 Years) 1960 Hepatitis C 1977 DTaP, Tdap and Td Vaccines ( 1 - Tdap) 1978 Mammogram Screening 1999 COVID-19 Vaccine (2023-2 5 season) 2024 03/19/2021, 09/05/2020, 08/08/2020 Dexa Scan (General) 01/17/2024 Pneumococcal Vaccine: 65+ Years (1 of 1 - PCV) 01/17/2024 Influenza Adult (#1) 2024 01/11/2021, 12/30/2019 PHQ-2 (Physician [place]) 05/12/2024 RSV Immunization or 60+ Years (1 - 1-dose 75+ series) 2034 Zoster Vaccines Completed 08/09/2019, 05/31/2019 Meningococcal B Vaccine Aged Out No l onger eligible based on patient's age to complete this topic Meningococcal Vaccine Aged Out No shade brandon eligible based on patient's age to complete this topic Pneumococcal Vaccine: Pediatrics (0 to 5 Years) and At-Risk Patients (6 to 64 Years) Aged Out No longer eligible b ased on patient's age to complete this topic RSV Immunizations Under 20 Months Aged Out No longer eligible b ased on patient's age to complete this topic Insurance MEDICARE [facility] Care Teams Cart Pusher Relationship Specialty Start Date End Date Geo Villela DO [address] [place] [address] PCP - General INTERNAL MEDICINE 12/20/21
--- OUTSIDE RECORDS SUMMARY | 2024-07-28 13:19 | XMS_ITS | Clinical Summary ---
Author Organization [facility] Address [address] [place] [address] Care Team Providers Care Driver Name Role Phone Geo Villela Primary Care Provider Allergies No known active allergies Medications ergocalciferol (VITAMIN D2) 50,000 unit capsule TK ONE C PO EACH WEEK 3 09/05/2017 Active estradiol (ESTRACE) 1 mg tablet TK 1 T PO D 1 09/05/2017 Active ibuprofen (MOTRIN) 800 mg tablet TK 1 T PO TID PRN 0 07/10/2017 Active lisinopril (PRINIVIL) 5 mg tablet TK 1 T PO D 2 09/05/2017 Active metoprolol succinate (TOPROL XL) 50 mg Extended Release 24 hour tablet TK 1 T PO QD 1 09/08/2017 Active PARoxetine HCl (PAXIL) 20 mg tablet Take 20 mg by mouth daily. Active Active Problems Problem Noted Date Diagnosed Date Fibrocystic breast changes, bilateral 10/02/2017 Social History Tobacco Use Types Packs/Day Years Used Date Smoking Tobacco: Never Smokeless Tobacco: Never Alcohol Use Standard Drinks/Week Comments Yes 6 (1 standard drink = 0.6 oz pur e alcohol) week Comments No Sex and Gender Information Value Date Recorded Sex Assigned at Not on file Legal Sex Female 1:55 PM CDT Gender Identity Not on file Sexual Orientation Not on file Last Filed Vital Signs Vital Sign Reading Time Taken Comments Blood Pressure 126/70 10/02/2017 9:52 AM CDT Pulse 88 10/02/2017 9:52 AM CDT Temperature 36.8 C (98.2 F) 10/02/2017 9:52 AM CDT Respiratory Rate - - Oxygen Saturation - - Inhaled Oxygen Concentration - - Weight 82.2 kg (181 lb 3.2 oz) 10/02/2017 9:52 A M CDT Height 165.1 cm (5' 5 ) 10/02/2017 9:52 AM CDT Body Mass Index 30.15 10/02/2017 9:52 AM CDT Plan of Treatment Health Maintenance Due Date Last Done Comments DTAP/TDAP/TD VACCINES (1 - Tdap) 1978 COLORECTAL SCREENING 01/17/2004 Colorectal Cancer Screening 01/17/2004 FIT-DNA Q 3 years 01/17/2004 FIT/FOBT Q 1 year 01/17/2004 Flex Sig/CT Colonography Q 5 years 01/17/2004 PNEUMOCOCCAL VACCINE 50+ YEARS (1 of 1 - PCV) 01/17/20 09 ZOSTER VACCINE (1 of 2) 2009 BREAST CANCER SCREENING 09/11/2017 09/11/2016 INFLUENZA VACCINE (#1) 2023 OSTEOPOROSIS SCREENING 01/17/2024 RSV VACCINE (60+ or ) (1 - 1-dose 75+ series) 2034 Procedures Procedure Name Priority Date/Time Associated Diagnosis Comments MAMMOGRAM REPORT Routine 09/11/2016 from Last 3 Months or Most Recently Relevant to Health Maintenance Results * MAMMOGRAM REPORT (09/11/2016) us Abstract Provider MAMMO ORDERABLES Final Result [facility] from Last 3 Months or Most Recently Relevant to Health Maintenance Insurance [place] Care Teams Driver Relationship Specialty Start Date End Date Geo Villela DO [address] [address] PCP - General Internal Medicine 10/02/17
[2024-07-28 13:24] LABS: Alanine Aminotransferase 25 U/L (6-35); Albumin Level 4.5 g/dL (3.5-5.1); Alkaline Phosphatase 49 U/L (38-126); Anion Gap 9 mmol/L (4-12); Aspartate Amino Transferase 36 U/L (14-36); Blood Urea Nitrogen 10 mg/dL (7-17); Calcium 8.8 mg/dL (8.4-10.2); Carbon Dioxide 27 mmol/L (22-30); Chloride 100 mmol/L (98-107); Cholesterol 265 mg/dL (0-200); Estimated Glomerular Filt Rate > 60; Glucose 124 mg/dL (65-110); HDL Direct 79 mg/dL; Potassium 4.7 mmol/L (3.4-5.0); Sodium 136 mmol/L (137-145); Triglycerides 255 mg/dL (<150)
[2024-07-28 13:34] LABS: LDL Cholesterol Direct 150 mg/dL
[2024-07-28 13:41] LABS: Hemoglobin A1C 5.3 % (<5.7)
[2024-07-28 14:31] LABS: Vitamin D 25 Hydroxy 44.5 ng/mL
== END 2024-07-28 11:22 | disposition home or self-care (01) ==
PROVIDERS: PCP Internal Medicine; Visit Provider Nurse Practitioner
DX: R73.03 Prediabetes (principal); I10 Essential (primary) hypertension; E78.5 Hyperlipidemia, unspecified; E55.9 Vitamin D deficiency, unspecified
CPT/HCPCS: 36415; 80053; 80061; 82306; 83036; 84443; 85025

== ENCOUNTER 2024-09-23 12:47 | Outpatient (CLI) | payer MEDICARE, SELFPAY ==
--- NOTE | ~2024-09-23 | XR_ITS ---
EXAMINATION: XR chest 2V 09/23/2024 12:21 INDICATION: Preprocedural examination. PROCEDURE: 2 view chest COMPARISON: No prior studies for comparison. FINDINGS: The lungs are clear. The cardiomediastinal silhouette is within normal limits. There are no pleural effusions. There is no pneumothorax suspected. IMPRESSION: 1: NO ACUTE CARDIOPULMONARY DISEASE. Reviewed, dictated and finalized at location A.
--- OUTSIDE RECORDS SUMMARY | 2024-09-23 11:37 | XMS_ITS | Clinical Summary ---
Author Organization [facility] Address [address] [place] [address] Care Team Providers Care Sleeping Bag Filler Name Role Phone Geo Villela Primary Care [...] Maintenance Insurance [place] Care Teams Sleeping Bag Filler Relationship Specialty Start Date End Date Geo Villela DO [address] [address] PCP - General Internal Medicine 10/02/17
--- OUTSIDE RECORDS SUMMARY | 2024-09-23 11:37 | XMS_ITS | Clinical Summary ---
Author Organization [facility] Address [address] [place] [address] Care Team Providers Care Tool Procurement Coordinator Name Role Phone Geo Villela DO Primary Care Provider [phone] Allergies No known active allergies Medications Vitamin D, Ergocalciferol, 50 MCG (1999 UT) Cap Take 5,000 Units by mouth daily. 06/08/19 22 Active estradiol 1 MG tablet Take 1 mg by mouth daily. 07/09/19 21 Active ibuprofen 600 MG tablet Take 600 mg by mouth 2 (two) times daily as needed. 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 Gender Identity Not on file Sexual Orientation [...] 1 - Tdap) 1978 Mammogram Screening 1999 Pneumococcal Vaccine: 50+ Years (1 of 1 - PCV) 2009 COVID-19 Vaccine (4 - 2023-2 5 season) 2024 03/19/2021, 09/05/2020, 08/08/2020 Dexa Scan (General) 01/17/2024 PHQ-2 (Physician [place]) 05/12/2024 RSV Immunization or 60+ Years (1 [...] age to complete this topic Insurance MEDICARE [facility] Care Teams Tool Procurement Coordinator Relationship Specialty Start Date End Date Geo Villela DO [address] [place] [address] PCP - General INTERNAL MEDICINE 04/30/21
--- OUTSIDE RECORDS SUMMARY | 2024-09-23 11:37 | XMS_ITS | Clinical Summary ---
Author Organization [facility] Address [address] [place] [address] Care Team Providers Care Pricing Clerk Name Role Phone Geo Villela DO Primary Care Provider [phone] Source Comments [facility],non-owned Affiliates and Associated Physician Practices is amultiple site organization consisting of ambulatory clinics and hospital sitesin [place] and [place]. This disclosure is being madepursuant to the Care Everywhere program and may not contain all information available regarding this patient. Last updated 18.[facility] Allergies No known active allergies Medications * Be aware that medications may not be up to date on this document. Alwaysverify current medications with the patient. vitamin D, ergocalciferol, (DRISDOL) 24465 UNITS capsule Take 1 capsule by mouth every 7 days 03/29/2018 Active estradiol (ESTRACE) 1 MG tablet Take 1 tablet by mouth once daily 04/06/2018 Active ibuprofen (MOTRIN) 800 MG tablet Take 1 tablet by mouth as needed 04/06/2018 Active lisinopril (PRINIVIL;ZESTR [place]) 5 MG tablet Take 1 tablet by [...] once daily 350 MG DAILY Active Multiple Vitamins-Minera ls (CENTRUM SILVER) TABS Take 1 tablet by [...] alcohol) 3 glasses of wine a day Comments Unknown Sex and Gender Information Value Date Recorded Sex Assigned at Not on file Legal Sex Female 7:15 AM CDT Gender Identity Not on file Sexual [...] SCREENING 1960 LIPID TESTING 1960 MAMMOGRAM 1959 HIV SCREENING 1974 HEPATITIS C SCREENING 01/11/1977 DTAP/TDAP/TD VACCINES (1 - Tdap) 1978 PNEUMOCOCCAL VACCINE 50+ (1 of 1 - PCV) 2009 ZOSTER VACCINE (1 of 2) 2009 COVID-19 VACCINE (1 - 2023-2 5 season) 2024 DEPRESSION SCREENING 05/12/2024 INFLUENZA VACCINE (Season Ended) 2025 Respiratory Syncytial Virus (RSV) Vaccine Pt: or [...] patient's age to complete this topic [place] [address] [place] [address] Care Teams Pricing Clerk Relationship Specialty Start Date End Date Geo Villela DO PCP - General 04/17/18
--- NOTE | 2024-09-23 11:53 | ECG_ITS ---
Test Date: 2024-09-23 12:03:38 Measurements Intervals [place] Rate: 60 P: 10 [place]: 144 QRS: 19 QRSD: 90 T: 17 QT: 391 QTc: 393 Interpretive Statements SINUS RHYTHM NONSPECIFIC ST AND T-WAVE ABNORMALITY ABNORMAL ECG No previous ECG available for comparison Electronically Signed On 09-24-2024 09:40:54 CDT by Micky Hobson M.D.
--- OUTSIDE RECORDS SUMMARY | 2024-09-23 12:26 | XMS_ITS | Clinical Summary ---
Author Organization [facility] Address [address] [place] [address] Care Team Providers Care Process Coach Name Role Phone Geo Vilella Primary Care Provider Allergies No known active [...] Maintenance Insurance [place] Care Teams Process Coach Relationship Specialty Start Date End Date Geo Villela DO [address] [address] PCP - General Internal Medicine 10/02/17
--- OUTSIDE RECORDS SUMMARY | 2024-09-23 12:26 | XMS_ITS | Clinical Summary ---
Author Organization [facility] [employer] Address [address] [place] [address] Care Team Providers Care Manufacturing Intern Name Role Phone Geo Villela DO Primary Care Provider [phone] Source Comments [facility] [employer],non-owned Affiliates and Associated Physician Practices is amultiple site organization consisting of ambulatory clinics and hospital sitesin [place], [place], [place] and [place]. This disclosure is being madepursuant to the Care Everywhere program and may not contain all information available regarding this patient. Last updated 18.[facility] [employer] Allergies No known active allergies Medications * Be aware that medications may not be up to date on this document. Alwaysverify current medications with the patient. vitamin D, ergocalciferol, (DRISDOL) 01613 UNITS capsule Take 1 capsule by mouth [...] patient's age to complete this topic [place] [address] Care Teams Manufacturing Intern Relationship Specialty Start Date End Date Geo Villela DO PCP - General 04/17/18
--- OUTSIDE RECORDS SUMMARY | 2024-09-23 12:26 | XMS_ITS | Clinical Summary ---
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
--- OUTSIDE RECORDS SUMMARY | 2024-09-23 12:49 | XMS_ITS | Clinical Summary ---
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
--- OUTSIDE RECORDS SUMMARY | 2024-09-23 12:49 | XMS_ITS | Clinical Summary ---
Author Organization [facility] Address [address] [place] [address] Care Team Providers Care Freelance Makeup Artist Name Role Phone Geo Villela Primary Care [...] Maintenance Insurance [place] Care Teams Freelance Makeup Artist Relationship Specialty Start Date End Date Geo Villela DO [address] [address] PCP - General Internal Medicine 10/02/17
--- OUTSIDE RECORDS SUMMARY | 2024-09-23 12:49 | XMS_ITS | Clinical Summary ---
Author Organization [facility] [employer] Address [address] [place] [address] Care Team Providers Care Travel Ot Name Role Phone Geo Villela DO Primary Care Provider [phone] Source Comments [facility] [employer],non-owned Affiliates and Associated Physician Practices is amultiple site organization consisting of ambulatory clinics and hospital sitesin [place], [place], [place] and [place]. This disclosure is being madepursuant to the Care Everywhere program and may not contain all information available regarding this patient. Last updated 18.[facility] [employer] Allergies No known active allergies Medications * Be aware that medications may not be up to date on this document. Alwaysverify current medications with the patient. vitamin D, ergocalciferol, (DRISDOL) 56940 UNITS capsule Take 1 capsule by mouth [...] patient's age to complete this topic [place] [address] Care Teams Travel Ot Relationship Specialty Start Date End Date Geo Villela DO PCP - General 04/17/18
[2024-09-23 13:37] LABS: Hematocrit 37.6 % (37.0-47.0); Hemoglobin 12.2 g/dL (12.0-15.0); Mean Corpuscular HGB Conc 32.4 g/dl (32-36); Mean Corpuscular Hemoglobin 31.4 pg (26-34); Mean Corpuscular Volume 96.7 fl (80-100); Mean Platelet Volume 9.4 fl (7.4-10.4); Platelet Count Result 305 k/mm3 (150-375); Red Blood Count 3.89 M/mm3 (4.2-5.4); White Blood Count 6.6 K/mm3 (4.5-10.0)
[2024-09-23 13:50] LABS: Partial Thromboplastin Time 23.5 Seconds (22.3-36.8)
[2024-09-23 13:51] LABS: Alanine Aminotransferase 26 U/L (6-35); Albumin Level 4.4 g/dL (3.5-5.1); Alkaline Phosphatase 45 U/L (38-126); Anion Gap 8 mmol/L (4-12); Aspartate Amino Transferase 41 U/L (14-36); Bilirubin,Total 0.9 mg/dL (0.2-1.3); Blood Urea Nitrogen 12 mg/dL (7-17); Calcium 8.6 mg/dL (8.4-10.2); Carbon Dioxide 26 mmol/L (22-30); Chloride 100 mmol/L (98-107); Estimated Glomerular Filt Rate > 60; Glucose 103 mg/dL (65-110); Potassium 4.3 mmol/L (3.4-5.0); Sodium 134 mmol/L (137-145)
[2024-09-23 14:51] LABS: MRSA (PCR) NOT DETECTED (NOT DETECTE)
[2024-09-23 16:27] LABS: Hemoglobin A1C 4.8 % (<5.7)
== END 2024-09-23 12:48 | disposition home or self-care (01) ==
PROVIDERS: PCP Internal Medicine; Visit Provider Anesthesiology Pain Medicine
DX: Z01.818 Encounter for other preprocedural examination (principal); R94.31 Abnormal electrocardiogram [ECG] [EKG]; R73.03 Prediabetes; N95.0 Postmenopausal bleeding; Z79.01 Long term (current) use of anticoagulants
CPT/HCPCS: 36415; 71046; 80053; 83036; 85027; 85610; 85730; 87641; 93005

== ENCOUNTER 2024-10-05 05:53 | Day surgery (SDC) | payer MEDICARE, SELFPAY ==
[2024-09-16 07:48] VITALS: BMI 29.9
--- NOTE | 2024-09-30 11:11 | PC.NURSE ---
EKG reviewed per anesthesia. OK to proceed with procedure at [facility] per Dr. Tadeo.
--- NOTE | ~2024-10-05 | XR_ITS ---
Indication: Temporary placement of spinal stimulator leads TECHNIQUE: Fluoroscopy used during Temporary placement of spinal stimulator leads performed by [ Larry Hsu MD] on 10/05/2024. 692 seconds of fluoroscopy with 6 fluoroscopic images captured. FINDINGS: Correlate with procedure note. IMPRESSION: Fluoroscopy used during Temporary placement of spinal stimulator leads, superior aspect o f the leads overlie the thoracic spine. Reviewed, dictated and finalized at location A. IMPRESSION: Fluoroscopy used during Temporary placement of spinal stimulator le ads, superior aspect of the leads overlie the thoracic spine.
--- OUTSIDE RECORDS SUMMARY | 2024-10-05 06:11 | XMS_ITS | Clinical Summary ---
Author Organization [facility] Address [address] [place] [address] Care Team Providers Care Guest Relations Officer Name Role Phone Geo Villela DO Primary Care Provider [phone] Source Comments [facility],non-owned Affiliates and Associated Physician Practices is amultiple site organization consisting of ambulatory clinics and hospital sitesin [place], [place], [place] and [place]. This disclosure is being madepursuant to the Care Everywhere program and may not contain all information available regarding this patient. Last updated 18.[facility] Allergies No known active allergies Medications * Be aware that medications may not be up to date on this document. Alwaysverify current medications with the patient. vitamin D, ergocalciferol, (DRISDOL) 80980 UNITS capsule Take 1 capsule by mouth [...] patient's age to complete this topic [place] [address] [address] Care Teams Guest Relations Officer Relationship Specialty Start Date End Date Geo Villela DO PCP - General 04/17/18
--- OUTSIDE RECORDS SUMMARY | 2024-10-05 06:11 | XMS_ITS | Clinical Summary ---
Author Organization [facility] Address [address] [place] [address] Care Team Providers Care Denture Technician Name Role Phone Geo Villela Primary Care [...] Maintenance Insurance [employer] [place] Care Teams Denture Technician Relationship Specialty Start Date End Date Geo Villela DO [address] [address] PCP - General Internal Medicine 10/02/17
--- OUTSIDE RECORDS SUMMARY | 2024-10-05 06:11 | XMS_ITS | Continuity of Care Document ---
Author Organization [facility] Address [address] [place] [address] Phone Care Team Providers Care Cosmetologist Apprentice Name Role Phone NVision, Provider Unavailable Unavailable Advance Directives Directive Yes / No Effective Date File Name No Information Encounters Encounter Description Practice Location Reason(s) For Visit Diagnoses Date Provider Providers Copied on Encounter [facility], [address], [place], [place], [id number], [place] tel:[phone] Other [facility] No Information 2 [facility] Provider. . Family History Family Member Type Diagnosis Age At Onset No Information Payers Payer name Insurance type Covered libertarian ID Authoriza tion(s) No Information Social History Type Description Quantity Date Captured Comments Sex Female Smoking Status No Information Chief Complaint And Reason For Visit No Information Reason For Referral Reason For Referral No Information History Of Present Illness Encounter Date Complaint History Of Prese nt Illness No Information Functional Status Date Functional Assessmen t No Information Instructions Date Instruction Additional Infor mation No Information Assessments Type Assessment Date No Information Patient Care Teams Name Effective Dates (start - stop) Status Members No Information
[2024-10-05 06:22] VITALS: BP 124/68; RESP 18; TEMP 36.9; O2SAT 97
[2024-10-05] MEDS: LACTATED RINGERS 1,000 ML 30 ML IV CONT (06:45)
--- NOTE | 2024-10-05 07:12 | P.PNAN_ITS ---
Anes - Initial Pre Proc Eval Procedure: Operation Date: 10/05/24 07:30 Proposed Procedures p Temporary Placement 2x8 Contact Percutaneous Epidural Stimulation Leads under Fluoroscopic Guidance for Spinal Cord Stimulator Trial - Larry Hsu MD Date/Time: 10/05/24 07:12 Surgeon: Larry Hsu MD Pre Op Diagnosis: Other Chronic Pain Patient Data Age: 64 Gender: F Height: 1.65 m Weight: 85.1 kg Last Vital Signs Temp 36.9 C 10/05/24 06:22 Resp 18 10/05/24 06:22 BP 124/68 10/05/24 06:22 Pulse Ox 97 10/05/24 06:22 O2 Del Method Room Air 10/05/24 06:22 Allergies Allergy/AdvReac Type Severity Reaction Status Date / Time No Known Allergies Allergy Verified 10/05/24 06:29 Home Medications ?Medication ?Instructions ?Recorded ?Confirmed ?Type cholecalciferol (vitamin D3) 1,250 50,000 unit PO WEEKLY 07/22/19 10/05/24 History mcg (50,000 unit) tablet paroxetine HCl 20 mg tablet 20 mg PO DAILY 07/22/19 10/05/24 History dbqbiwhv-hmjs-ctox 8 mg-folic 400 1 tablet PO DAILY 11/29/19 10/05/24 History mcg-K 50 mcg-lutein 300 mcg tablet (Centrum Silver Women) omega 3 350 mg-dha 235 mg-epa 90 1 cap PO DAILY 11/29/19 10/05/24 History mg-fish oil 597 mg capsule,delay rel ([place]-3) vitamin E 268 mg (400 unit) capsule 400 unit PO DAILY 11/29/19 10/05/24 History ascorbate calcium (vitamin C) 500 500 mg PO DAILY 08/09/20 10/05/24 History mg tablet calcium carbonate 600 mg PO DAILY 08/09/20 10/05/24 History cholecalciferol (vitamin D3) 125 125 mcg PO DAILY 07/25/21 10/05/24 History mcg (5,000 unit) capsule cyanocobalamin 1,000 1 tablet PO DAILY 07/25/21 10/05/24 History mcg-salcaprozate sodium 100 mg tablet ibuprofen 600 mg tablet See Rx Instructions .Route 06/02/24 10/05/24 Rx .COMPLEX #30 tabs pregabalin 75 mg capsule 75 mg PO TID 07/28/24 10/05/24 History simvastatin 20 mg tablet 20 mg PO DAILY #90 tabs 07/29/24 10/05/24 Rx metoprolol succinate 50 mg 50 mg PO DAILY #90 tabs 09/15/24 10/05/24 Rx tablet,extended release 24 hr lisinopril 20 mg tablet 20 mg PO DAILY #90 tabs 09/22/24 10/05/24 Rx Patient hx anesthesia problems: none Family hx anesthesia problems: none Results Review: All pre-operative results and documents have been reviewed as part of the pre- operative evaluation. 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 Status post hysteroscopy x 2 2018 polyp vs hyperplasia without atypia pathology unclear-repeat endometrial biopsy normal 3 months later after increased progesterone 2019 negative Anxiety Hypertension Surgical History Surgical History S/P tubal ligation H/O dilation and curettage H/O breast biopsy Hx of cataract surgery H/O detached retina repair Family History Family History Sibling Family history of multiple sclerosis CHF (congestive heart failure) Breast cancer Mother Family history of pancreatic cancer Pancreatic cancer Grandparent CHF (congestive heart failure) Social History Social History Smoking status: Never smoker Smoking end date: 05/12/00 Alcohol intake: current Drinks per week: 14 Substance use: current Substance use type: marijuana Do You Feel Safe in your Home?: Yes Lack of Transportation: No Lack of Food: Never True Current Housing: I Have Housing Concerned About Future Housing: No Difficulty Paying Gas/Electric Bills: No Difficulty Paying for Meds: No Currently Unemployed: No Education: High School Diploma/GED Difficulty w/ Childcare or Family Care: No Living arrangements: alone Occupation/Education: retired Gender identity (if verbalized by the patient): Female Spiritual care concerns: No Anes - Eval Final PreProcedure Day of Procedure 10/05/24 07:12 Patient weight: obese Heart: regular rate and rhythm Lungs: clear to auscultation Airway: Mallampati scale class III Neurological: alert and oriented Last oral intake: >/= 8 hours ASA classification: III Emergent: no Anesthetic plan: proceed Anesthesia type and monitoring: general GIVS and standard monitoring Results Review: All pre-operative results and documents have been reviewed as part of the pre- operative evaluation. Informed Consent: The patient's anesthetic plan and its attendant risks and benefits were discussed with the patient/family/POA. Questions were solicited and answers provided to the satisfaction of the patient/family/POA.
--- NOTE | 2024-10-05 07:15 | PM.HPGS ---
History of Present Illness History of Present Illness Consent: Risks, benefits, and alternatives have been discussed and questions answered. Patient agrees to proceed with procedure. Chief complaint: Peripheral polyneuropathy, chronic pain Narrative: Yue Horner is a 64 year old female with chronic, recalcitrant and disabling bilateral lower extremity and foot pain secondary to peripheral polyneuropathy with failure to respond to aggressive conservative measures including PT, oral and topical analgesics, opioid and nonopioid analgesics, rest, time and activity/behavioral modification over the past 6-12 months who presents for 2 lead, percutaneous thoracolumbar spinal cord stimulation trial under fluoroscopic guidance. Review of Systems Review of Systems: Patient denies any new infectious, allergic, cardiopulmonary, neurologic or constitutional symptoms or changes in activity tolerance or exercise capacity including new or progressive SOB/NEGRO, peripheral edema, productive cough, dysuria, nausea/vomiting, diarrhea, weight change, fevers/chills/night sweats, new or progressive neurologic deficit, cognitive or mood changes since last seen, except as documented in the HPI. All systems reviewed & are unremarkable except as noted in HPI and below PMFSH Past Medical History Medical History (Updated 10/05/24 @ 07:16 by Aravind Baez, ) Hyperlipidemia Peripheral polyneuropathy Chronic pain long-term (current) use of anticoagulants Status post hysteroscopy x 2 2018 polyp vs hyperplasia without atypia pathology unclear-repeat endometrial biopsy normal 3 months later after increased progesterone 2019 negative Anxiety Hypertension Surgical History Surgical History S/P tubal ligation H/O dilation and curettage H/O breast biopsy Hx of cataract surgery H/O detached retina repair Family History Family History Sibling Family history of multiple sclerosis CHF (congestive heart failure) Breast cancer Mother Family history of pancreatic cancer Pancreatic cancer Grandparent CHF (congestive heart failure) Social History Social History Smoking status: Never smoker Smoking end date: 05/12/00 Alcohol intake: current Drinks per week: 14 Substance use: current Substance use type: marijuana Do You Feel Safe in your Home?: Yes Lack of Transportation: No Lack of Food: Never True Current Housing: I Have Housing Concerned About Future Housing: No Difficulty Paying Gas/Electric Bills: No Difficulty Paying for Meds: No Currently Unemployed: No Education: High School Diploma/GED Difficulty w/ Childcare or Family Care: No Living arrangements: alone Occupation/Education: retired Gender identity (if verbalized by the patient): Female Spiritual care concerns: No Meds Home Medications and Allergies Home Medications ?Medication ?Instructions ?Recorded ?Confirmed ?Type cholecalciferol (vitamin D3) 1,250 50,000 unit PO WEEKLY 07/22/19 10/05/24 History mcg (50,000 unit) tablet paroxetine HCl 20 mg tablet 20 mg PO DAILY 07/22/19 10/05/24 History axuvemim-xcoh-tzsd 8 mg-folic 400 1 tablet PO DAILY 11/29/19 10/05/24 History mcg-K 50 mcg-lutein 300 mcg tablet (Centrum Silver Women) omega 3 350 mg-dha 235 mg-epa 90 1 cap PO DAILY 11/29/19 10/05/24 History mg-fish oil 597 mg capsule,delay rel ([place]-3) vitamin E 268 mg (400 unit) capsule 400 unit PO DAILY 11/29/19 10/05/24 History ascorbate calcium (vitamin C) 500 500 mg PO DAILY 08/09/20 10/05/24 History mg tablet calcium carbonate 600 mg PO DAILY 08/09/20 10/05/24 History cholecalciferol (vitamin D3) 125 125 mcg PO DAILY 07/25/21 10/05/24 History mcg (5,000 unit) capsule cyanocobalamin 1,000 1 tablet PO DAILY 07/25/21 10/05/24 History mcg-salcaprozate sodium 100 mg tablet ibuprofen 600 mg tablet See Rx Instructions .Route 06/02/24 10/05/24 Rx .COMPLEX #30 tabs pregabalin 75 mg capsule 75 mg PO TID 07/28/24 10/05/24 History simvastatin 20 mg tablet 20 mg PO DAILY #90 tabs 07/29/24 10/05/24 Rx metoprolol succinate 50 mg 50 mg PO DAILY #90 tabs 09/15/24 10/05/24 Rx tablet,extended release 24 hr lisinopril 20 mg tablet 20 mg PO DAILY #90 tabs 09/22/24 10/05/24 Rx Allergies Allergy/AdvReac Type Severity Reaction Status Date / Time No Known Allergies Allergy Verified 10/05/24 06:29 Vital Signs Vital Signs - 24 hr 10/05/24 06:22 Temperature 98.5 F Respiratory Rate 18 Blood Pressure 124/68 Pulse Oximetry 97 Oxygen Delivery Room Air Exam Narrative: The patient's physical exam is essentially unchanged from prior examination on 08/09/2024. Specifically, patient demonstrates normal lung capacity, tidal volume and respiratory rate without wheezes, crackles, rales or rubs. Heart rate and rhythm are regular without murmurs, gallops or rubs. No JVD. Pulses 2+ globally without increasing peripheral edema. AAOx3 with no evidence of confusion, intoxication or altered mental state, NC/AT without acute distress or altered consciousness. Speech, cognition, mood, insight and judgment at baseline and within normal limits. Assessment and Plan Assessment and plan (1) Small fiber neuropathy: Code(s): G62.9 - Polyneuropathy, unspecified Status: Acute (2) Peripheral polyneuropathy: Code(s): G62.9 - Polyneuropathy, unspecified Status: Acute (3) Foot pain, bilateral: Code(s): M79.671 - Pain in right foot; M79.672 - Pain in left foot Status: Acute (4) Chronic pain: Qualifiers: Chronic pain type: other chronic pain Qualified Code(s): G89.29 - Other chronic pain Code(s): G89.29 - Other chronic pain Status: Acute Plan Proceed as planned with 2 lead, percutaneous thoracolumbar spinal cord stimulation trial under fluoroscopic guidance.
--- NOTE | 2024-10-05 07:18 | WPDHPUPDATE1 ---
History and Physical Update Update Date/Time: 10/05/24 07:18 History and Physical has been reviewed, including an updated exam of the patient. There are NO changes in the patient's condition. Risks, benefits, and alternatives have been discussed and questions answered. Patient agrees to proceed with procedure.
--- NOTE | 2024-10-05 07:20 | P.OP_ITS ---
Procedure Note - Detailed Date of Procedure 10/05/24 Pre-op Diagnosis Peripheral polyneuropathy, chronic pain Post-op Diagnosis Same Procedure Performed Percutaneous Epidural Placement of Two Medtronic Spinal Cord Stimulation Leads under Fluoroscopic Guidance for Trial with Complex Intraoperative Programming (>1 Hour). Surgeon Larry Hsu MD Anesthesia Local Description of Procedure INFORMED CONSENT: Risks, benefits and alternatives to the procedure were discussed in detail with the patient who expressed explicit understanding and consent to proceed. Patient was informed verbally and in written form regarding the risks associated with the procedure including the low risk of serious infec tion, meningitis, dural puncture requiring treatment or surgical repair, headache, severe bleeding/bruising, allergic reaction, nerve or organ injury, paralysis, procedural site pain or discomfort, worsening pain and/or mobility, failure to treat and/or disfigurement. The patient expressed explicit understanding and consent to proceed. All materials required for the procedure were available prior to procedure start. Site and side were marked prior to procedure and confirmed in the presence of the patient. PROCEDURE IN DETAIL: The patient was brought to the procedural suite and placed in the prone position. Patient was made comfortable with use of pillows under the head/chest, hips and ankles. Skin overlying the injection site was wiped with alcohol and prepared broadly with 3 applications of a ChloraSept scrub. Patient draped in the usual sterile manner. Aseptic technique was employed throughout. The endplates of the vertebral body at the site of interest were aligned in the AP view. Slight caudal tilt angulation was utilized to optimize visualization of the targeted posterior intervertebral foramen. Local anesthesia was established by infiltration with approximately 5 mL of 1% lidocaine via a 1- 1/2 inch 27-gauge needle. Deeper structures were anesthetized by infiltration of an additional 5 ml of 1% lidocaine via a 3.0 inch 22-gauge quincke spinal need le. A 16-gauge 4-inch curved epidural needle was advanced intermittently until appropriate loss of resistance to air was identified via plastic loss of resistance syringe at the L1-L2 level. Lateral view was used to confirm the appropriate positioning of the needle tip within the posterior epidural space. In the AP view, after negative aspiration for CSF, blood or other bodily fluid, a single 8-contact Medtronic epidural trial lead was advanced at midline until the distal electrode was even with the midportion of the T9 vertebral body in the AP view. A second needle was placed, and lead advanced, in a similar manner with final lead position at midline with distal electrode at the superior endplate of T11. Each lead was programmed, stimulated and repositioned until appropriate parasthesias were obtained in both the bilateral distribution at the T9-10 interspace and in a distribution coinciding with the majority of the patient's typical pain topography at any point on either lead. No unanticipated parasthesias were elicited with needle or lead placement. Lead stylettes and then needles were carefully removed under live fluoroscopy, completely intact and without difficulty, to ensure lack of lead migration. Patient's skin, leads and contacts were cleaned with alcohol. Externalized portions of the leads were affixed to the skin utilizing a stress-relieving loop, a StayFix Catheter bandage, spray adhesive (benzoin) , large Tegaderm and Medipore tape. Lot numbers for all implanted materials were documented in the patient's chart. Images were saved and documented in the patient chart. The patient tolerated the procedure well. The patient was transported to the recovery area in stable condition where they were observed for an appropriate amount of time prior to discharge, without evidence of complication. The patient will return within 5-10 days for catheter removal and trial assessment. The patient was instructed to avoid excessive activity for the next 48 hours, including bending, lifting and twisting at the waist, climbing ladders and frequent use of stairs. Keep bandage clean, dry and intact for duration of trial. Sponge bathe only for duration of trial. They were instructed not to drive or operate heavy machinery at all for 24 hours or while stimulator is on for remainder of trial. They are to monitor for severe headaches, fevers, chills, night sweats, erythema/swelling at the site or any other signs of infection, bleeding/bruising, bowel or bladder changes as well as new pain, weakness or numbness in the upper or lower extremity. Should they notice these changes, they are instructed to call our office immediately or report directly to the nearest Emergency Department if no answer or if after posted office hours. COMPLICATIONS: None COMMENTS: None Complications No immediate complications Condition Stable Disposition PACU [facility] Billing Surgery - Charge Forward: Surgery Billing
[2024-10-05] MEDS: ceFAZolin SODIUM 2 GM/20 ML SW SYRINGE IV PUSH (07:29)
[2024-10-05] MEDS: LIDOCAINE 1% PF INJ 5 ML VIAL INFILTRATE (08:06)
[2024-10-05 08:30] VITALS: BP 112/72; PULSE 62; RESP 15; O2SAT 98
[2024-10-05 09:00] VITALS: BP 99/69; PULSE 59; RESP 15; O2SAT 99
--- NOTE | 2024-10-05 09:01 | SUR.PHASEII ---
andrés Ny (medtronic) in patient room to deliver hands-on education to and spouse concerning controls for stimulator
[2024-10-05 09:15] VITALS: BP 96/62; PULSE 58; RESP 15; O2SAT 94
--- NOTE | 2024-10-06 08:00 | WPDANESPN ---
Anes - Prog Note Post-Op Date/Time: 10/05/24 08:30 Cardiovascular status: normal Respiratory status: normal Airway patency: baseline Mental status: baseline Post-Op hydration status: normal Vital Signs: Last Vital Signs Temp 36.9 C 10/05/24 06:22 Pulse 58 L 10/05/24 09:15 Resp 15 10/05/24 09:15 BP 96/62 L 10/05/24 09:15 Pulse Ox 94 10/05/24 09:15 O2 Del Method Room Air 10/05/24 09:00 Pain Score (VAS): 0 Post-procedural complaints: none Patient Feedback: Patient satisfied with anesthetic care. Other Findings: Patient vital signs back to baseline. Patient denies nausea and vomiting. Patient's pain under control. Patient OK for discharge.
== END 2024-10-05 09:24 | disposition home or self-care (01) ==
PROVIDERS: PCP Internal Medicine; Visit Provider Anesthesiology Pain Medicine
PROC: (CPT 63650; principal; 2024-10-05 07:30)
DX: G62.9 Polyneuropathy, unspecified (principal); G89.29 Other chronic pain; M79.605 Pain in left leg; M79.604 Pain in right leg; M79.672 Pain in left foot; M79.671 Pain in right foot
CPT/HCPCS: 63650; 99199

== ENCOUNTER 2025-02-02 08:23 | Outpatient (CLI) | payer MEDICARE, SELFPAY ==
--- NOTE | ~2025-02-02 | MM_ITS ---
EXAMINATION: MM screening leonardo BI w rubi HISTORY: Screening TECHNIQUE: Craniocaudal and mediolateral oblique 3-D tomosynthesis images were obtained and synthetic 2-D images were generated. CAD analysis was submitted and interpreted. COMPARISON: 01/01/2022 BREAST PARENCHYMAL COMPOSITION: The breasts are extremely dense, which lowers the sensitivity of mammography. FINDINGS: There is no evidence of suspicious mass, calcification, or architectural distortion to suggest malignancy. There has been no suspicious interval change. IMPRESSION: 1. No mammographic evidence of malignancy. Recommend routine screening mammography in one year. BI-RADS Category 2: Benign finding(s) Reviewed, dictated and finalized at location Q. IMPRESSION: 1. No mammographic evidence of malignancy. Recommend routine screening mammogra phy in one year. BI-RADS Category 2: Benign finding(s)
--- OUTSIDE RECORDS SUMMARY | 2025-02-02 08:38 | XMS_ITS | Clinical Summary ---
Author Organization [facility] Address [address] [place] [address] Care Team Providers Care Finishing Range Supervisor Name Role Phone Geo Villela Primary Care [...] A M CDT Height 165.1 cm (5' 5) 10/02/2017 9:52 AM CDT Body Mass Index [...] 2) 2009 BREAST CANCER SCREENING 09/11/2017 09/11/2016 OSTEOPOROSIS SCREENING 01/17/2024 INFLUENZA VACCINE (#1) 2024 RSV VACCINE (60+ or ) (1 - [...] Maintenance Insurance [employer] [place] Care Teams Finishing Range Supervisor Relationship Specialty Start Date End Date Geo Villela DO [address] [address] PCP - General Internal Medicine 10/02/17
--- OUTSIDE RECORDS SUMMARY | 2025-02-02 08:38 | XMS_ITS | Clinical Summary ---
Author Organization [facility] Address [address] [place] [address] Care Team Providers Care Advertising Analyst Name Role Phone Geo Villela DO Primary Care Provider [phone] Source Comments [facility],non-owned Affiliates and Associated Physician Practices is amultiple site organization consisting of ambulatory clinics and hospital sitesin [place], [place], [place] and [place]. This disclosure is being madepursuant to the Care Everywhere program and may not contain all information available regarding this patient. Last updated 18.[facility] Allergies No known active allergies Medications * Be aware that medications may not be up to date on this document. Alwaysverify current medications with the patient. vitamin D, ergocalciferol, (DRISDOL) 82512 UNITS capsule Take 1 capsule by mouth [...] SCREENING 1959 LIPID TESTING 1959 MAMMOGRAM 1959 HEPATITIS C SCREENING 01/11/1977 DTAP/TDAP/TD VACCINES (1 - Tdap) 1978 PNEUMOCOCCAL VACCINE 50+ (1 of 1 - PCV) 2009 ZOSTER VACCINE (1 of 2) 2009 DEPRESSION SCREENING 05/12/2024 COVID-19 VACCINE (1 - 2023-2 5 season) 2025 INFLUENZA VACCINE (#1) 2025 Respiratory Syncytial Virus (RSV) Vaccine Pt: [...] patient's age to complete this topic Insurance Care Teams Advertising Analyst Relationship Specialty Start Date End Date Geo Villela DO PCP - General 04/17/18
== END 2025-02-02 08:24 | disposition home or self-care (01) ==
LOC: ANHFOHIMG 08:25
PROVIDERS: PCP Internal Medicine; Visit Provider Obstetrics & Gynecology Gynecology
DX: Z12.31 Encounter for screening mammogram for malignant neoplasm of breast (principal)
CPT/HCPCS: 77063; 77067